=== PATIENT | female | born 1990 | race Caucasian/White ===

== ENCOUNTER 2018-10-15 21:28 | Emergency (ER) | payer MEDICAID ==
[~2018-10-15] VITALS: Ht 162.6 cm; Wt 72.3 kg
[2018-10-15 23:20] VITALS: BP 103/75
[2018-10-15] MEDS ORDERED: MethylPREDNISolone SOD SUCC 125 MG/2 ML VIAL IM ONE (23:30)
== END 2018-10-15 23:56 | disposition home or self-care (01) ==
LOC: EMS 21:31
DX: L50.9 Urticaria, unspecified (principal); J45.909 Unspecified asthma, uncomplicated; Z91.041 Radiographic dye allergy status; Z91.013 Allergy to seafood
CPT/HCPCS: 96372; 99283; J2930